=== PATIENT | male | born 1970 | race Caucasian/White ===

== ENCOUNTER 2018-02-11 13:30 | Emergency (ER) | payer MEDICARE, OTHER ==
[~2018-02-11] VITALS: Ht 170.2 cm; Wt 95.2 kg
[~2018-02-11 13:30] MED LIST: ACETAMINOPHEN325 M1 PO; ATENOLOL25 MG PO; ATIVAN1 MG PO; BACTRIM DS TAB1 EACH PO; BENZONATATE200 MG PO; BUSPIRONE HCL10 MG PO; CARBAMAZEPINE200 M2 PO; CARBATROL200 MG PO; CYMBALTA30 MG PO; DEPLIN-ALGAL O1 EAC1 PO; FIBER LAXATIVE625 MG PO; FIBER0.52 GM PO; GENERLAC10 GM/15 M PO; KEPPRA500 MG PO; LAMICTAL200 MG PO; LORAZEPAM1 MG PO; MILK OF MA400 MG/5 M PO; MIRALAX17 GM PO; OMEPRAZOLE40 MG PO; OYSTER SHELL C500 MG PO; PAIN RELIEVER500 M1 PO; PEPTO-BISM262 MG/15 PO; PRILOSEC20 MG PO; Q-TUSSIN DM SY120 ML PO; RISPERDAL0.5 MG PO; RISPERDAL2 MG PO; RISPERIDONE1 MG PO; ROBITUSSIN100 MG/5 M PO; SENNA-DOCUSATE1 EACH PO; TOPIRAMATE25 MG PO; TRIAMCINOLONE A15 G1 TOP; VITAMIN B-650 MG PO; VITAMIN B125000 MCG PO; VITAMIN D-32000 UNIT PO; VITAMIN D31000 UNIT PO; ZOFRAN4 MG PO
[2018-02-11] MEDS ORDERED: CARBAMAZEPINE200 MG PO (14:58)
[2018-02-11] MEDS ORDERED: ENULOSE10 GM/15 M PO (16:01)
== END 2018-02-11 16:05 | disposition home or self-care (01) ==
LOC: ED 13:30
DX: R09.89 Other specified symptoms and signs involving the circulatory and respiratory systems (principal); K59.00 Constipation, unspecified; E66.9 Obesity, unspecified; K21.9 Gastro-esophageal reflux disease without esophagitis; I10 Essential (primary) hypertension; Z88.5 Allergy status to narcotic agent; Z88.8 Allergy status to other drugs, medicaments and biological substances; Z79.899 Other long term (current) drug therapy
CPT/HCPCS: 74022; 99283

== ENCOUNTER 2018-12-17 05:40 | Day surgery (SDC) | payer MEDICARE, OTHER ==
[~2018-12-17] VITALS: Ht 170.2 cm; Wt 81.7 kg
--- NOTE | ~2018-12-17 | OR ---
[facility] [address], [place] [address] Draft DATE OF OPERATION: 12/17/2018 SURGEON: Jose Francisco Barbosa MD PREOPERATIVE DIAGNOSIS: Torn lateral meniscus, right knee. POSTOPERATIVE DIAGNOSIS: Torn lateral meniscus, right knee. PROCEDURE: Knee arthroscopy with partial lateral meniscectomy. ANESTHESIA: General. SPECIMENS AND COMPLICATIONS: There were no specimens or complications. TOURNIQUET TIME: About 25 minutes. WHAT WAS DONE: The patient was taken to the operating room. After anesthesia was induced and airway secured, the patient was positioned prepped and draped in a routine sterile fashion. The leg was exsanguinated with an Esmarch bandage. Pneumatic tourniquet was inflated to 300 mmHg pressure. A superomedial portal was created for outflow and then the standard anterolateral portal was created. An anteromedial portal was then created using localization with a spinal needle. A nerve hook was introduced. Diagnostic arthroscopy revealed a large type 1 and a large type 2 plica, which seemed unremarkable. The patellofemoral joint was pristine as was the medial recess in the medial compartment. The intercondylar notch had a large incarcerated lateral meniscal fragment that was significantly shredded. The lateral compartment did not reveal any degenerative changes and there were no loose bodies in the lateral recess. We then introduced a basket forceps, completed the meniscal tear anteriorly then posteriorly and delivered a large meniscal fragment out of the knee. We then used the motorized shaver to gently debride the edges of the meniscectomy and contour and shape the meniscectomy. The knee was copiously irrigated and drained. The portals were closed, sterile dressing applied and the patient was awakened, taken to the recovery room, and arrived in stable condition. Counts were correct and antibiotic protocols were followed. PATIENT NAME: DIOMEDES NUNEZ OPERATIVE REPORT DATE OF : 72 REPORT #: [id number] PHYSICIAN: JOSE FRANCISCO ABRBOSA MD PCP: TANVIR ROD DO REPORT IS CONFIDENTIAL AND NOT TO BE RELEASED WITHOUT AUTHORIZATION [address] [place], [place] [address] Draft MD VIVIAN Morgan/SCOT /[id number] Copies: ~ PATIENT NAME: DIOMEDES NUNEZ OPERATIVE REPORT DATE OF : 72 REPORT #: [id number] PHYSICIAN: JOSE FRANCISCO BARBOSA MD PCP: TANVIR ROD DO REPORT IS CONFIDENTIAL AND NOT TO BE RELEASED WITHOUT AUTHORIZATION
[~2018-12-17 05:40] MED LIST changes: +CARBAMAZEPINE200 MG PO; +ENULOSE10 GM/15 M PO; +INVEGA SUS234 MG/1.5 IM
[2018-12-17] MEDS ORDERED: TRIAMCINOLONE A15 G1 TOP (06:14)
--- NOTE | 2018-12-17 08:32 | NUR ---
12/17/[address] [place] 0822- PT ARRIVES IN PACU. OPA IN PLACE. RESPS EVEN AND UNLABORED. 02 SAT HIGH 90'S ON 6 L VIA MASK. PT IS NONAROUSABLE TO VERBAL OR TACTILE STIMULI. PT UNABLE TO RESPOND TO QUESTIONS AT THIS TIME. 0828- PT OPA REMOVED. PT ABLE TO PUSH OPA OUT WTH USE ON TONGUE AND ASSISTANCE VIA RICK MOORE RN. RESPS EVEN AND UNLABORED. O2 SATS HIGH 90'S ON 6 L VIA MASK. PT OPENING EYES AND RESSPONDING TO YES AND NO QUESTIONS.
--- NOTE | 2018-12-17 08:53 | NUR ---
PT ARRIVES TO DS TREATMENT ROOM FROM RECOVERY AWAKE AND BACK TO BASELINE. PT RESP EVEN AND UNLABORED, SATS ABOVE 94% ON RA. PT POINTS TO "VERY HAPPY NO PAIN" ON FACES PAIN SCALE AND STATES, "IT HURTS A LITTLE" WHEN ASKED. PT TOLERATES PO WELL, DRINKING APPLE JUICE. PT CAREGIVER, AZALEA AT BEDSIDE. SCD'S IN PLACE, CALL LIGHT WITH AZALEA.
[2018-12-17] MEDS ORDERED: ULTRAM50 MG PO (09:38)
--- NOTE | 2018-12-17 10:39 | NUR ---
LE 0910: PT TOLERATES PO WELL, PROVIDED PUDDING. LE 0930: PT RESTING IN BED, WATCHING TV WITH KALEAN AT BEDSIDE. CAREGIVER DRESSES PT PER REQUEST. MEDICATION PHONED IN TO [facility] IN [place], [place]. LE 1000: SECOND CAREGIVER IN PT RM. DC INSTRUCTIONS GIVEN IN PRESENCE OF PT AND CAREGIVERS. ALL QUESTIONS ADDRESSED. 1015: PT DC'S FROM DS TREATMENT RM VIA PERSONAL WC WITH [place] CAREGIVERS TO HOME.
== END 2018-12-17 10:18 | disposition home or self-care (01) ==
LOC: DS 05:40 → OPS 05:40 → DS 06:45 → OPS 08:00 → DS 09:30 → OPS 10:18 → DS 01-16 09:30
PROVIDERS: Orthopaedic Surgery
PROC: 0SBC4ZZ Excision of Right Knee Joint, Percutaneous Endoscopic Approach (ICD-10-PCS; principal; 2018-12-17 08:00)
DX: S83.281A Other tear of lateral meniscus, current injury, right knee, initial encounter (principal); K21.9 Gastro-esophageal reflux disease without esophagitis; G80.9 Cerebral palsy, unspecified; F32.9 Major depressive disorder, single episode, unspecified; F41.0 Panic disorder [episodic paroxysmal anxiety]; Z79.899 Other long term (current) drug therapy
CPT/HCPCS: 01400; J0690; J1100; J1885; J2250; J2405; J2704; J3010; J3301; J7120

== ENCOUNTER 2021-03-09 05:50 | Day surgery (SDC) | payer MEDICARE, OTHER ==
[~2021-03-09] VITALS: Ht 172.7 cm; Wt 107.5 kg
[~2021-03-09 05:50] MED LIST changes: +ULTRAM50 MG PO
[2021-03-09] MEDS ORDERED: BETAMETHASONE D15 GM TOP (06:13)
--- NOTE | 2021-03-09 08:04 | NUR ---
03/09/21 0804 [address] 0759- PT ARRIVES TO PACU NONAROUSABLE TO NOXIOUS STIMULI WITH AN OPA IN PLACE. RESP EVEN AND UNLABORED. OXYGEN SAT HIGH 90'S TO 100% ON 10L VIA MASK. 0803- OXYGEN TITRATED DOWN TO 6L VIA MASK.
--- NOTE | 2021-03-09 08:38 | NUR ---
PT ARRIVED FROM PACU. REPORT RECEIVED FROM JOE CABRERA. PT AWAKE AND ORIENTED AND ANSWERING QUESTIONS PER BASELINE. PT RESTLESS AND POINTS TO LEFT SIDE OF FACE WHEN ASKED ABOUT PAIN. PT UNABLE TO RATE PAIN AT THIS TIME. PT DENIES NAUSEA. PT TOELRATING PO JUICE. CRACKERS PROVIDED. NO ACTIVE WOUNDS NOTED. SCD'S REMOVED TO HELP PT WITH RESTLESSNESS. PT DENIES ADDITIONAL REQUESTS OR COMPLAINTS. BED RAILS UP. CAREGIVER AT BEDSIDE.
--- NOTE | 2021-03-09 09:26 | NUR ---
VITALS AND ASSESSMENT DUE. PT WATCHING TV. PT REPORTS PAIN ON LEFT SIDE OF MOUTH. PT POINTS TO 7/10 ON FACES SCALE. 3/10 FLACC SCORE NOTED. PTS CAREGIVER STATES PT DOES NOT NEED PAIN MEDICATION AT THIS TIME. VERBALE ORDER RECEIVED FROM DR. MARIANO TO CONTINUE HOME MEDICATIONS (ADDED TO DISCHARGE ORDER). NO BLEEDING NOTED IN MOUTH. PT COMPLIANT WITH VISUAL EXAM OF MOUTH. VITAL SIGNS STABLE. PT DRESSES WITH 1 PERSON ASSIST FROM CAREGIVER. DISCHARGE INSTRUCTIONS REVEIWED WITH PT AND CAREGIVER. CAREGIVER VERBALIZES UNDERSTANDING OF INSTRUCTIONS. IV DC'D PER PROTOCOL, GAUZE AND COBAN APPLIED. PT TOLERATING PO AND VOIDING (INCONTINANT IN DEPENDS), DEPENDS CHANGED. NO ADDITIONAL REQUESTS OR CONCERNS. PT WHEELED FROM DAY SURGERY WITH CAREGIVER.
== END 2021-03-09 09:35 | disposition home or self-care (01) ==
LOC: DS 05:50 → OPS 05:50 → DS 06:45 → OPS 09:35
PROVIDERS: ATTEND Dentist General Practice
PROC: 0CQXXZ2 Repair of Lower Tooth, All, External Approach (ICD-10-PCS; 2021-03-09)
PROC: 0CQXXZ2 Repair of Lower Tooth, All, External Approach (ICD-10-PCS; principal; 2021-03-09 06:45)
DX: K05.6 Periodontal disease, unspecified (principal); G80.9 Cerebral palsy, unspecified; F63.9 Impulse disorder, unspecified; F72 Severe intellectual disabilities; K21.9 Gastro-esophageal reflux disease without esophagitis
CPT/HCPCS: 00170; 80048; 85025; J7121

== ENCOUNTER 2022-09-20 05:35 | Day surgery (SDC) | payer MEDICARE, OTHER ==
[~2022-09-20] VITALS: Ht 170.2 cm; Wt 92.3 kg
[~2022-09-20 05:35] MED LIST changes: +BETAMETHASONE D15 GM TOP; +HYDRALAZINE HCL25 MG PO
--- NOTE | 2022-09-20 08:05 | NUR ---
09/20/22 0805 Misty Morales 0800 PATIENT ARRIVES TO PACU AWAKE, C/O TOOTH PAIN. DR MARIANO STATES THAT IS SOMETHING THE PATIENT ALAWYS SAYS, BUT CURRENTLY HIS MOUTH SHOULD BE NUMB. LC MEDINA DID REMEDICATE FOR PAIN WELL. RESP EVEN AND UNLABORED, ROOM AIR SATS >94%.
--- NOTE | 2022-09-20 08:26 | NUR ---
PT IS BACK TO DS FROM PACU. HE IS BACK TO HIS BASELINE. HE IS TOLERATING ORANGE JUICE AT THIS TIME. HE WOULD LIKE CHOCOLATE PUDDING. THIS RN WILL REMAIN AT BEDSIDE UNTIL CAREGIVERS RETURN.
--- NOTE | 2022-09-20 09:53 | NUR ---
LE 0845: PT IS VOCALIZING THAT HE WOULD LIKE TO GO HOME. HE HAS TOLERATED BOTH ORANGED JUICE AND ORANGE JELLO. PER CAROL SUTHERLAND IT IS OK TO SEND THE PT HOME BEFORE HIS PHASE II HOUR IS UP. VERBAL AND WRITTEN DC INSTRUCTIONS ARE GIVEN TO CAREGIVERS, THEY BOTH VERBALIZE UNDERSTANDING. QUESTIONS ARE ASKED AND ANSWERED. CAREGIVERS GET PT DRESSED AND WHEEL HIM OUT IN PERSONAL WC.
== END 2022-09-20 08:50 | disposition home or self-care (01) ==
LOC: DS 05:35
PROVIDERS: ATTEND Dentist General Practice
PROC: 0CBWXZ1 Excision of Upper Tooth, External Approach, Multiple (ICD-10-PCS; 2022-09-20)
PROC: 0CBXXZ1 Excision of Lower Tooth, External Approach, Multiple (ICD-10-PCS; principal; 2022-09-20 07:00)
DX: K05.6 Periodontal disease, unspecified (principal); K21.9 Gastro-esophageal reflux disease without esophagitis; Z79.899 Other long term (current) drug therapy
CPT/HCPCS: J0330; J1100; J1885; J2001; J2405; J2704; J3010; J7121

== ENCOUNTER 2025-06-10 07:00 | Day surgery (SDC) | payer MEDICARE, OTHER ==
[~2025-06-10] VITALS: Ht 170.2 cm; Wt 121.0 kg
[~2025-06-10 07:00] MED LIST changes: +ANTACID430 MG PO; -GENERLAC10 GM/15 M PO; +HYDROXYZINE PAM25 MG PO; +IBLOOD GLUCOSE TEST STRIP 1 EA TEST VI PRN; +L-METHYLFOLATE1 EAC6 PO; +LACTATED RINGER'S 1,000 ML IV SCH; +LACTULOSE20 GM PO; +LIDOCAINE HCL 1% 5 ML SDV INJ ONE; -VITAMIN D-32000 UNIT PO; +VITAMIN D-40010 MCG PO
[2025-06-10] MEDS ORDERED: OXYMETAZOLINE HCL 30 ML BTL ONE (07:09)
[2025-06-10] MEDS ORDERED: ROCURONIUM BROMIDE 50 MG/5 ML SYR ONE (07:09)
[2025-06-10] MEDS ORDERED: LIDOCAINE HCL 2% 5 ML SDV ONE (07:09)
[2025-06-10] MEDS ORDERED: DEXAMETHASONE SOD PHOS 4 MG/ML VIAL ONE (07:09)
[2025-06-10 07:10] VITALS: BP 143/82
[2025-06-10] MEDS ORDERED: fentaNYL citrate 100 MCG/2 ML VIAL ONE (07:12)
[2025-06-10 07:38] LABS: BASOPHILS 1.0 % (0.2-1.2); BASOPHILS, ABSOLUTE 0.06 K/uL (0.01-0.08); EOSINOPHILS 3.0 % (0.8-7.0); EOSINOPHILS, ABSOLUTE 0.17 K/uL (0.04-0.54); LYMPHOCYTES 31.4 % (21.8-53.1); MCH 30.0 PG (25.7-32.2); MCHC 32.8 g/dL (32.3-36.5); MCV 91.2 fL (79.0-92.2); MONOCYTES 8.5 % (5.3-12.2); MONOCYTES, ABSOLUTE 0.49 K/uL (0.30-0.82); NEUTROPHILS 55.4 % (34.0-67.9); NEUTROPHILS, ABSOLUTE 3.19 K/uL (1.78-5.38); RBC 5.14 M/uL (4.63-6.08)
[2025-06-10 07:47] LABS: GLOMERULAR FILTRATION RATE,EST 88.0 mL/min (>60); UREA NITROGEN 16.0 mg/dL (7-18)
--- NOTE | 2025-06-10 07:54 | NUR ---
0705 pt arrived per wc will stand with belt assist to stretcher. locomotive driver bryan is accompanying pt. pt is some what verbal. not accurate on answers so bryan answers for him. bryan instructed to remain in hospital while pt here.
[2025-06-10] MEDS ORDERED: IBLOOD GLUCOSE TEST STRIP 1 EA TEST VI PRN (08:45)
[2025-06-10] MEDS ORDERED: KETOROLAC TROMETHAMINE 30 MG/ML VIAL IV PRN (08:45)
[2025-06-10] MEDS ORDERED: SEVOFLURANE 250 ML BTL INH ONE (09:16)
[2025-06-10 09:22] VITALS: BP 150/110
--- NOTE | 2025-06-10 09:27 | NUR ---
HAS RETURNED PACU DRINKING APPLE JUICE AND WATER. SOME WHAT VERBAL "TIME TO GO" OSVALDO AT BS.
[2025-06-10 10:16] VITALS: BP 156/113
--- NOTE | 2025-06-10 10:33 | NUR ---
1015 REVIEWED DC INSTRUCTIONS WITH OSVALDO AND PT COMPUTER PRINT OUT NO QUESTIONS ENC TO RE READ AT HOME. ASSISTED WITH DRESSING PT AND TO PERSONAL WC.
--- NOTE | 2025-06-10 11:02 | NUR ---
06/10/25 1102 [address],[place] 6904 PT ARRIVED TO PACU ON 6L VIA MASK, PT SITTING IN HIGH FOLWERS AND TALKING TO RN. VSS. SMALL AMOUNT OF DRAINAGE NOTED FROM MOUTH, TISSUE USED. PT DENIES PAIN. 904 PT STARTED GRABBING AT O2 MASK AND O2 REMOVED. 914 PT RESTING IN BED AND TALKING TO RN OFF AND ON. VSS. REPORT TO DS RN WITH CRAEGIVER AT BEDSIDE. CALL LIGHT WITHIN REACH.
== END 2025-06-10 10:25 | disposition home or self-care (01) ==
LOC: DS 07:00 → OPS 07:00
PROVIDERS: ATTEND Dentist General Practice
PROC: 0CDWXZ1 Extraction of Upper Tooth, Multiple, External Approach (ICD-10-PCS; 2025-06-10)
PROC: 0CDXXZ1 Extraction of Lower Tooth, Multiple, External Approach (ICD-10-PCS; principal; 2025-06-10 07:00)
DX: K02.9 Dental caries, unspecified (principal); K03.6 Deposits [accretions] on teeth; G80.9 Cerebral palsy, unspecified; G40.909 Epilepsy, unspecified, not intractable, without status epilepticus; L40.9 Psoriasis, unspecified; K21.9 Gastro-esophageal reflux disease without esophagitis; Z79.899 Other long term (current) drug therapy; Z91.048 Other nonmedicinal substance allergy status; Z88.5 Allergy status to narcotic agent
CPT/HCPCS: 00170; 36415; 80048; 85025; J1100; J2003; J2405; J2704; J3010; J3490; J7121